=== PATIENT | male | born 1930 | race Caucasian/White ===

== ENCOUNTER 2018-09-08 07:20 | Inpatient (IN) | payer MEDICARE, OTHER ==
[~2018-09-08] VITALS: Ht 182.9 cm; Wt 67.3 kg
--- NOTE | 2018-09-08 07:24 | NUR ---
BIB [facility] FROM [facility] FOR HIGH TEMP 100.1 AND LOW SPO2 83%. PT ON 6L MASK, GIVEN ALBUTEROL AND 800CC NS IN ROUTE. VS OTHERWISE STABLE. BILAT IV'S IN PLACE. PT BASELINE "SEVERE" DEMENTIA, PT SPEAKING FEW WORDS, AOX0, PER [facility] TO [facility] [place] THIS IS PTS BASELINE. NO OTHER MEDICAL HX, TAKES ASA DAILY WITH SENNA, MIRALAX. PT RECENTLY TAKEN OFF HOSPICE PER EMS 08/22 BUT HAS DNR PAPERWORK BROUGHT WITH PT FROM [facility].
[2018-09-08 08:00] LABS: MEAN CORPUSCULAR HEMOGLOBIN 30.3 pg (27.5-34.5); MEAN CORPUSCULAR HGB CONC 32.6 g/dL (33.2-36.2); MEAN CORPUSCULAR VOLUME 92.9 fL (81-97); MEAN PLATELET VOLUME 9.1 fL (7.4-10.4); PLATELET COUNT 288 x10^3/uL (130-400); RED BLOOD COUNT 4.97 x10^6/uL (4.38-5.82); RED CELL DISTRIBUTION WIDTH 14.3 % (9.4-14.8)
[2018-09-08 08:19] LABS: ALBUMIN 2.9 g/dL (3.4-5.0); ANION GAP 7 mmol/L (5-15); CALCIUM 8.5 mg/dL (8.5-10.1); CHLORIDE 112 mmol/L (98-107); CREATININE 1.49 mg/dL (0.7-1.3)
[2018-09-08 08:24] LABS: MD YES
[2018-09-08 08:25] LABS: BANDS%(MANUAL) 14 % (0-7); LYMPHS% (MANUAL) 2 % (22-44); MONOS% (MANUAL) 3 % (2-9); SEGS% (MANUAL) 81 % (42-75)
[2018-09-08 08:26] LABS: <PLATELET ESTIMATE> ADEQUATE; <RBC MORPHOLOGY> NORMAL; LARGE PLATELETS 1+
--- NOTE | 2018-09-08 08:30 | NUR ---
PT SLEEPING IN BED, EQUAL CHEST RISE AND FALL, NAD, ON 3LNC. CALL LIGHT WITHIN REACH.
[2018-09-08] MEDS ORDERED: POLY119P4 PO (08:44)
[2018-09-08] MEDS ORDERED: SENN-92 PO (08:44)
[2018-09-08] MEDS ORDERED: ASPI-515 PO (08:44)
[2018-09-08 08:53] LABS: CULTURE INDICATED? YES; MICROSCOPIC INDICATED
--- NOTE | 2018-09-08 09:30 | NUR ---
PT SLEEPING IN BED, EQUAL CHEST RISE AND FALL, NAD, ON 3LNC. AT BEDSIDE. ADMIT ORDERS RECIEVED. AWAITING BED ASSIGNMENT
--- NOTE | 2018-09-08 10:33 | NUR ---
PT SLEEPING IN BED, EQUAL CHEST RISE AND FALL, NAD, ON 3LNC. AT BEDSIDE. AWAITING BED ASSIGNMENT
--- NOTE | 2018-09-08 11:29 | NUR ---
REPORT TO MELITON BOLANOS, RAPID FLU TO BE COLLECTED BEFORE PT SENT
[2018-09-08] MEDS ORDERED: ACETAMINOPHEN 650 MG SUPP PR PRN (11:30)
[2018-09-08] MEDS ORDERED: PHARMACY MAY ADJ FOR RENAL FX MC PRN (11:30)
[2018-09-08] MEDS ORDERED: SENNA/DOCUSATE TABLET PO PRN (11:30)
[2018-09-08] MEDS ORDERED: ACETAMINOPHEN 325 MG TABLET PO PRN (11:30)
[2018-09-08] MEDS ORDERED: ONDANSETRON 2MG/ML, 2ML IVPB PRN (11:30)
[2018-09-08] MEDS ORDERED: BISACODYL 10 MG SUPP PR PRN (11:30)
[2018-09-08 12:00] VITALS: BP 171/85
[2018-09-08] MEDS ORDERED: hydrALAzine 20 MG/ML, 1ML IV PRN (12:30)
[2018-09-08] MEDS: CEFTRIAXONE PMX 1GM/50ML 50 ML IVPB SCH (12:53)
[2018-09-08] MEDS: HEPARIN 5,000 UNITS/ML, 1ML INJ SCH ×2 (12:53→20:29)
[2018-09-08] MEDS: DOXYCYCLINE 100 MG in DEXTROSE 5% 250 ML IV SCH (12:53)
[2018-09-08] MEDS: SODIUM CHLORIDE 0.9% 1,000 ML IV SCH ×2 (12:54→23:16)
[2018-09-08] MEDS: metroNIDAZOLE 500 MG TABLET PO SCH ×2 (12:54→20:28)
[2018-09-08 13:45] LABS: RAPID INFLUENZA A Negative (Negative); RAPID INFLUENZA B Negative (Negative)
[2018-09-08 15:09] VITALS: BP 180/83
[2018-09-08 19:23] VITALS: BP 99/61
[2018-09-09 00:15] VITALS: BP 110/68
[2018-09-09] MEDS: DOXYCYCLINE 100 MG in DEXTROSE 5% 250 ML IV SCH (00:44)
[2018-09-09] MEDS: metroNIDAZOLE 500 MG TABLET PO SCH ×3 (05:05→20:44)
[2018-09-09] MEDS: HEPARIN 5,000 UNITS/ML, 1ML INJ SCH ×3 (05:05→20:44)
[2018-09-09 05:58] LABS: BASOPHILS # (AUTO) 0.01 x10^3/uL (0-0.1); BASOPHILS % (AUTO) 0 % (0-1); EOSINOPHILS # (AUTO) 0.01 x10^3/uL (0-0.4); EOSINOPHILS % (AUTO) 0 % (1-7); LYMPHOCYTES # (AUTO) 1.04 x10^3/uL (1-3.4); LYMPHOCYTES % (AUTO) 10 % (22-44); MD NO; MEAN CORPUSCULAR HEMOGLOBIN 31.1 pg (27.5-34.5); MEAN CORPUSCULAR HGB CONC 33.6 g/dL (33.2-36.2); MEAN CORPUSCULAR VOLUME 92.5 fL (81-97); MEAN PLATELET VOLUME 8.6 fL (7.4-10.4); MONOCYTES # (AUTO) 0.96 x10^3/uL (0.2-0.8); MONOCYTES % (AUTO) 9 % (2-9); NEUTROPHILS # (AUTO) 8.68 x10^3/uL (1.8-6.8); NEUTROPHILS % (AUTO) 81 % (42-75); PLATELET COUNT 249 x10^3/uL (130-400); RED CELL DISTRIBUTION WIDTH 14.3 % (9.4-14.8)
[2018-09-09 06:11] LABS: ANION GAP 5 mmol/L (5-15); CALCIUM 8.1 mg/dL (8.5-10.1); CHLORIDE 113 mmol/L (98-107); CREATININE 0.82 mg/dL (0.7-1.3)
[2018-09-09 07:48] VITALS: BP 132/71
[2018-09-09] MEDS: DOXYCYCLINE 100MG TABLET PO SCH ×2 (08:34→20:44)
[2018-09-09] MEDS: ASPIRIN 81 MG TABLET EC PO SCH (08:34)
[2018-09-09] MEDS: POLYETHYLENE GLYCOL 17 GM PACKET PO SCH (08:34)
[2018-09-09] MEDS: SODIUM CHLORIDE 0.9% 1,000 ML IV SCH ×2 (08:35→19:25)
[2018-09-09] MEDS: CEFTRIAXONE PMX 1GM/50ML 50 ML IVPB SCH (12:11)
[2018-09-09 14:13] VITALS: BP 159/85
[2018-09-09 19:45] VITALS: BP 166/76
[2018-09-10 01:09] VITALS: BP 146/79
[2018-09-10] MEDS: metroNIDAZOLE 500 MG TABLET PO SCH ×2 (04:50→13:26)
[2018-09-10] MEDS: HEPARIN 5,000 UNITS/ML, 1ML INJ SCH ×2 (04:50→13:26)
[2018-09-10] MEDS: SODIUM CHLORIDE 0.9% 1,000 ML IV SCH (08:17)
[2018-09-10 09:16] VITALS: BP 161/92
[2018-09-10] MEDS: DOXYCYCLINE 100MG TABLET PO SCH (10:01)
[2018-09-10] MEDS: POLYETHYLENE GLYCOL 17 GM PACKET PO SCH (10:01)
[2018-09-10] MEDS: ASPIRIN 81 MG TABLET EC PO SCH (10:01)
[2018-09-10] MEDS: CEFTRIAXONE PMX 1GM/50ML 50 ML IVPB SCH (12:49)
[2018-09-10] MEDS ORDERED: AMOX250S20 PO (13:39)
[2018-09-10 15:36] VITALS: BP 165/87
== END 2018-09-10 16:15 | disposition hospice, home (50) | DRG 189 ==
LOC: ED 09:42 → EDIP 11:03 → 4NOR 11:46
PROVIDERS: ADMIT Internal Medicine; ATTEND Internal Medicine
PROC: 0T9B70Z Drainage of Bladder with Drainage Device, Via Natural or Artificial Opening (ICD-10-PCS; principal; 2018-09-08)
DX: J96.01 Acute respiratory failure with hypoxia (principal); J69.0 Pneumonitis due to inhalation of food and vomit; E44.0 Moderate protein-calorie malnutrition; E87.2 Acidosis; N17.9 Acute kidney failure, unspecified; Z68.20 Body mass index [BMI] 20.0-20.9, adult; Z66 Do not resuscitate; F03.90 Unspecified dementia, unspecified severity, without behavioral disturbance, psychotic disturbance, mood disturbance, and anxiety; I10 Essential (primary) hypertension; K21.9 Gastro-esophageal reflux disease without esophagitis; M85.80 Other specified disorders of bone density and structure, unspecified site; R13.10 Dysphagia, unspecified; Z86.73 Personal history of transient ischemic attack (TIA), and cerebral infarction without residual deficits
CPT/HCPCS: 36415; 71045; 74230; 80048; 81001; 82040; 83605; 84145; 85025; 87040; 87086; 87400; 93005; 96374; 99285; G0378; J0696; J1644; J7060; J0360; J7030